=== PATIENT | female | born 1940 | race Two or more races ===

== ENCOUNTER 2024-03-23 11:41 | Inpatient (IN) | payer OTHER ==
[~2024-03-23] VITALS: Ht 165.1 cm; Wt 59.7 kg
--- NOTE | 2024-03-23 12:03 | ECG ---
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
--- NOTE | 2024-03-23 12:40 | ED.PDOC ---
History of Present Illness HPI Comments 83F presents to the ER w/ no prior Hx associated to the c/c of ABN labs. Pt reports on pulling a muscle on her neck last week at [facility] and woke up this morning at 0200 w/ neck pain. Pt stated that she checked her BP due from having palpitations and it was 188/117. She stated that she went to [facility] and that the physician said her labs are not good and that she needs to go to the ER and to have a lung scan. PMHx of High Lipids, and HTN. Denies chills, fever, N/V/D, SOB, or other associated symptoms, modifiers, or recent injuries at this time. Chief Complaint: Abnormal LAB's Time Seen by MD: 12:20 Primary Care Provider: justo Reviewed Notes: Nurses Notes, Medications, Allergies Information Source: Patient Mode of Arrival: Ambulatory Severity: Moderate Timing: Hours Duration: Since onset, Hours Prehospital treatment: None Past Medical History PAST MEDICAL HISTORY: High Lipids, HTN Surgical History: Denies all surgeries BELLOWS TESTER History: No Pertinent BELLOWS TESTER History Family History Family History: Reviewed,noncontributory to illness, Unknown Social History Smoker: Non-Smoker Alcohol: Denies ETOH Use Drugs: Denies Drug Use Lives In: Home Constitutional: denies: chills, diaphoresis, fatigue, fever, malaise, sweats, weakness, others EENTM: denies: blurred vision, double vision, ear bleeding, ear discharge, ear drainage, ear pain, ear ringing, eye pain, eye redness, hearing loss, mouth pain, mouth swelling, nasal discharge, nose bleeding, nose congestion, nose pain, photophobia, tearing, throat pain, throat swelling, voice changes, others Respiratory: denies: cough, hemoptysis, orthopnea, SOB at rest, shortness of breath, SOB with excertion, stridor, wheezing, others Cardiovascular: reports: palpitations; denies: chest pain, dizzy spells, diaphoresis, Dyspnea on exertion, edema, irregular heart beat, left arm pain, lightheadedness, PND, syncope, others Gastrointestinal: denies: abdomen distended, abdominal pain, blood streaked bowels, constipated, diarrhea, dysphagia, difficulty swallowing, hematemesis, melena, nausea, poor appetite, poor fluid intake, rectal bleeding, rectal pain, vomiting, others Genitourinary: denies: abnormal vagina bleeding, burning, dyspareunia, dysuria, flank pain, frequency, hematuria, incontinence, pain, , vagina discharge, urgency, others Neurological: denies: dizziness, fainting, headache, left sided numbness, left sided weakness, numbness, paresthesia, pre-existing deficit, right sided numbness, right sided weakness, seizure, speech problems, tingling, tremors, weakness, others Musculoskeletal: reports: neck pain; denies: back pain, gout, joint pain, joint swelling, muscle pain, muscle stiffness, others Integumetry: denies: bruises, change in color, change in hair/nails, dryness, laceration, lesions, lumps, rash, wounds, others Allergic/Immunocompromised: denies: Difficulty Healing, Frequent Infections, Hives, Itching, others Hematologic/Lymphatic: denies: anemia, blood clots, easy bleeding, easy bruising, swollen glands, others Endocrine: denies: excessive hunger, excessive sweating, excessive thirst, excessive urination, flushing, intolerance to cold, intolerance to heat, un explained weight gain, unexplained weight loss, others Psychiatric: denies: anxiety, bipolar disorder, depression, hopeless, panic disorder, schizophrenia, sleepless, suicidal, others All Other Systems: Reviewed and Negative Physical Exam General Appearance: Moderate Distress, Normal HEENT: Normal ENT Inspection, Pharynx Normal, TMs Normal Neck: Full Range of Motion, Non-Tender, Normal, Normal Inspection Respiratory: Chest Non-Tender, Lungs Clear, No Accessory Muscle Use, No Respiratory Distress, Normal Breath Sounds Cardiovascular: No Edema, No JVD, No Murmur, No Gallop, Normal Peripheral Pulse s, Regular Rate/Rhythm Breast Exam: Deferred Gastrointestinal: No Organomegaly, Non Tender, No Pulsatile Mass, Normal Bowel Sounds, Soft Genitalia: Deferred Pelvic: Deferred Rectal: Deferred Extremities: No calf tenderness, Normal capillary refill, Normal inspection, Normal range of motion, Non-tender, No pedal edema Musculoskeletal : Apperance: Normal Neurologic: Alert, desk attendant II-XII nml as Tested, No Motor Deficits, Normal Affect, Normal Mood, No Sensory Deficits Cerebellar Function: Normal Reflexes: Normal Skin: Dry, Normal Color, Warm Peripheral Pulses: 3+ Radial (R), 3+ Radial (L) Lymphatic: No Adenopathy Was a procedure done? Was a procedure done?: No Differential Dx Considerations may include: Anemia Electrolyte imbalance X-Ray, Labs, Meds, VS Vital Signs Date Time Temp Pulse Resp B/P (MAP) Pulse Ox O2 Delivery O2 Flow Rate FiO2 03/23/24 13:25 107 16 98 Room Air* 0 21 03/23/24 13:24 98.2 107 18 176/117 (136) 98 98.2 03/23/24 13:24 176/117 03/23/24 11:55 110 03/23/24 11:54 98.0 122 17 161/110 (127) 97 Lab Test 03/23/24 13:21 Range/Units White Blood Count 4.8 4.4-10.8 10^3/uL Red Blood Count 4.55 4.0-5.20 10^6/uL Hemoglobin 11.6 L 12.2-16.2 g/dL Hematocrit 35.8 L 36.0-46.0 % Mean Corpuscular Volume 78.6 L 80.0-100.0 fL Mean Corpuscular Hemoglobin 25.5 L 28.0-32.0 pg Mean Corpuscular Hemoglobin Concent 32.5 32.0-36.0 g/dL Red Cell Distribution Width 15.5 H 11.8-14.3 % Platelet Count 276 140-450 10^3/uL Mean Platelet Volume 8.6 6.9-10.8 fL Neutrophils (%) (Auto) 65.9 37.0-80.0 % Lymphocytes (%) (Auto) 21.4 10.0-50.0 % Monocytes (%) (Auto) 6.5 0.0-12.0 % Eosinophils (%) (Auto) 1.4 0.0-7.0 % Basophils (%) (Auto) 4.8 H 0.0-2.0 % Neutrophils # (Auto) 3.2 1.6-8.6 10 ^3/uL Lymphocytes # (Auto) 1.0 0.4-5.4 10 ^3/uL Monocytes # (Auto) 0.3 0-1.3 10 ^3/uL Eosinophils # (Auto) 0.1 0-0.8 10 ^3/uL Basophils # (Auto) 0.2 0-0.2 10 ^3/uL Nucleated Red Blood Cells 0.1 % D-Dimer, Quantitative 1.16 H 0.0-0.49 mg/L FEU Sodium Level 140 136-145 mmol/L Potassium Level 3.8 3.5-5.1 mmol/L Chloride Level 105 98-107 mmol/L Carbon Dioxide Level 27 20-31 mmol/L Anion Gap 8 5-15 Blood Urea Nitrogen 17 9-23 mg/dL Creatinine 1.37 H 0.550-1.02 mg/dL Glomerular Filtration Rate Calc 39 >90 mL/min BUN/Creatinine Ratio 12.4 10.0-20.0 Serum Glucose 101 74-106 mg/dL Calcium Level 10.6 H 8.7-10.4 mg/dL Troponin I High Sensitivity 10 </=34 ng/L Current Medications Medications (Trade) Dose Ordered Sig/Luna Route Start Time Stop Time Status Last Admin Amlodipine Besylate (Norvasc Tablet) 10 mg ONCE ONCE PO 03/23/24 13:00 03/23/24 13:01 DC 03/23/24 13:24 Acetaminophen/ Hydrocodone Bitart ([place] 5/325MG Tab) 1 tab ONCE ONCE PO 03/23/24 13:30 03/23/24 13:31 DC 03/23/24 13:28 Patient alert. She is anxious. Vitals stable. Blood pressure elevated. Saturation pristine on room air. Tachycardia. Ultrasound ordered. CT of the chest was not ordered till the labs. No leg swelling. Possibly musculoskeletal. Explained to the patient. Continue cardiac monitoring. [facility] approved inpatient admission [id number]. Time of 1ST Reevaluation: 12:50 Reevaluation 1ST: Unchanged Patient Education/Counseling: Diagnosis, Treatment, Prognosis Family Education/Counseling: No Family Present Departure 1 Departure Time of Disposition: 12:50 Impression: Primary Impression: Hypertensive emergency Disposition: 09 ADMITTED INPATIENT Admit to: Med Surg Condition: Guarded Critical Care Note Critical Care Time?: Yes (45 min-critical care time only) Stability Stability form required: No Heart Score Heart Score: Heart Score Response (Comments) Value History Slightly Suspicious 0 EKG Normal 0 Age >65 2 Risk Factors >3 or Hx ASHD 2 Troponin N/A 0 Total 4 I personally scribed for KARINA MILLER MD ([email or web address]) on 03/23/24 at 12:40. Electronically submitted by Christofer Watts ([email or web address]). KARINA MILLER MD Mar 23, 2024 12:40
[2024-03-23] MEDS: amLODIPine BESYLATE 5 MG TAB PO ONE (13:24)
[2024-03-23 13:25] VITALS: PULSE 107; RESP 16; O2SAT 98
[2024-03-23] MEDS: HYDROcodone-ACET 5/325MG TAB PO ONE (13:28)
--- NOTE | 2024-03-23 13:29 | DVH ---
EXAM: US BILAT LOWER DVT Clinical History: dvt Comparison: None Technique: Duplex Doppler evaluation of the deep venous systems of both lower extremities from the common femora l veins to the popliteal veins including color Doppler and spectral/pulsed waveform analysis was perf ormed. Findings: No visible intraluminal venous thrombus. No evidence of incompressibility or abnormal color or spectr al Doppler flow visualized in the deep bilateral lower extremity veins. Proximal greater saphenous ve ins are grossly unremarkable. Impression: 1. No sonographic evidence of deep venous thrombosis throughout the bilateral lower extremities from the popliteal veins to the common femoral veins.
[2024-03-23 13:39] LABS: Basophils # (auto) 0.2 10 ^3/uL (0-0.2); Basophils % (auto) 4.8 % (0.0-2.0); Eosinophils # (auto) 0.1 10 ^3/uL (0-0.8); Eosinophils % (auto) 1.4 % (0.0-7.0); Hematocrit 35.8 % (36.0-46.0); Hemoglobin 11.6 g/dL (12.2-16.2); Lymphocytes % (auto) 21.4 % (10.0-50.0); Mean Corpuscular Hemoglobin 25.5 pg (28.0-32.0); Mean Corpuscular Hgb Conc. 32.5 g/dL (32.0-36.0); Mean Corpuscular Volume 78.6 fL (80.0-100.0); Monocytes # (auto) 0.3 10 ^3/uL (0-1.3); Monocytes % (auto) 6.5 % (0.0-12.0); Neutrophils # (auto) 3.2 10 ^3/uL (1.6-8.6); Neutrophils % (auto) 65.9 % (37.0-80.0); Nucleated Red Blood Cells % 0.1 %; Platelet Count (auto) 276 10^3/uL (140-450); Red Blood Cells 4.55 10^6/uL (4.0-5.20); Red Cell Distribution Width 15.5 % (11.8-14.3); White Blood Cell 4.8 10^3/uL (4.4-10.8)
[2024-03-23 13:47] LABS: Chloride 105 mmol/L (98-107); Potassium 3.8 mmol/L (3.5-5.1); Sodium 140 mmol/L (136-145)
[2024-03-23 13:48] LABS: Anion Gap 8 (5-15); Carbon Dioxide 27 mmol/L (20-31)
[2024-03-23 13:53] LABS: Glucose 101 mg/dL (74-106)
[2024-03-23 13:54] LABS: BUN/Creatinine Ratio 12.4 (10.0-20.0); Blood Urea Nitrogen 17 mg/dL (9-23)
[2024-03-23 13:55] LABS: Calcium 10.6 mg/dL (8.7-10.4)
[2024-03-23] MEDS ORDERED: ACETAMINOPHEN 325 MG TAB PO PRN (14:45)
[2024-03-23] MEDS ORDERED: ONDANSETRON HCL 4 MG/2 ML VIAL IV PRN (14:45)
--- NOTE | 2024-03-23 15:09 | DVHHP2 ---
History of Present Illness Reason for Visit: Abnormal labs History of Present Illness This 83-year-old female presents in the ED with a chief complaint of abnormal labs. The patient reports last week she started having neck and mid back pain radiating to abdomen described as "sharp pain" leading her to go to [place]. The patient states that the physician and [facility] told her to go to ER due to abnormal labs and to get a lung scan. In the emergency department, the patient BP noted to be elevated. D-dimer slightly elevated. The patient states that she takes metoprolol succinate 50 b.i.d., Lipitor 20, and aspirin 81. She denies headaches, dizziness, syncope, chest pain, shortness of breath, or other acute symptoms. Past medical history of hypertension and hyperlipidemia Past Medical History As stated in HPI Past Surgical History Hysterectomy Family History Reviewed, non-contributory to the management of this case. Past Social History The patient lives at home, denies smoking, alcohol or illicit drugs abuse. Review of Systems Constitutional: Yes: Malaise; No: Fever, Chills, Sweats, Weakness, Other Eyes: No: Pain, Vision change, Conjunctivae inflammation, Eyelid inflammation, Other, Redness ENT: No: Ear pain, Ear discharge, Nose pain, Nose discharge, Nose congestion, Mouth pain, Mouth swelling, Throat pain, Throat swelling, Other Respiratory: No: Cough, Dry, Shortness of breath, SOB with excertion, Wheezing, Hemoptysis, Pleuritic Pain, Sputum, Wheezing, Other Cardiovascular: No: Chest Pain, Palpitations, Orthopnea, Paroxysmal Noc. Dyspnea, Edema, Lt Headedness, Other Gastrointestinal: Abdominal Pain; No: Nausea, Vomiting, Diarrhea, Constipation, Melena, Hematochezia, Other Genitourinary: No Dysuria, No Frequency, No Incontinence, No Hematuria, No Retention, No Other Musculoskeletal: neck pain, back pain; No: other, shoulder pain, arm pain, hand pain, leg pain, foot pain Skin: No: Rash, Lesions, Jaundice, Bruising, Other Neurological: No: Weakness, Numbness, Incoordination, Change in speech, Confusion, Seizures, Other Allergies: Coded Allergies: NO KNOWN ALLERGIES (Unverified , 03/23/24) Exam Vital Signs Vital Signs Date Time Temp Pulse Resp B/P (MAP) Pulse Ox O2 Delivery O2 Flow Rate FiO2 03/23/24 13:25 107 16 98 Room Air* 0 21 03/23/24 13:24 98.2 176/117 (136) 98.2 General Appearance: Alert, Oriented X3, Cooperative, mild distress HEENT: Atraumatic, PERRLA, EOMI, Mucous membr. moist/pink Respiratory: Clear to auscultation, Normal air movement Cardiovascular: Regular rate, Normal S1, Normal S2 Abdominal: Normal bowel sounds, Soft Extremities: No clubbing, No cyanosis, Normal pulses, No tenderness/swelling Skin: No rashes, No breakdown, No significant lesion Neuro: Normal gait, Normal speech, Strength at 5/5 X4 ext Psych/Mental Status: Mental status NL Labs/Xrays Labs Test 03/23/24 13:21 Range/Units White Blood Count 4.8 4.4-10.8 10^3/uL Red Blood Count 4.55 4.0-5.20 10^6/uL Hemoglobin 11.6 L 12.2-16.2 g/dL Hematocrit 35.8 L 36.0-46.0 % Mean Corpuscular Volume 78.6 L 80.0-100.0 fL Mean Corpuscular Hemoglobin 25.5 L 28.0-32.0 pg Mean Corpuscular Hemoglobin Concent 32.5 32.0-36.0 g/dL Red Cell Distribution Width 15.5 H 11.8-14.3 % Platelet Count 276 140-450 10^3/uL Mean Platelet Volume 8.6 6.9-10.8 fL Neutrophils (%) (Auto) 65.9 37.0-80.0 % Lymphocytes (%) (Auto) 21.4 10.0-50.0 % Monocytes (%) (Auto) 6.5 0.0-12.0 % Eosinophils (%) (Auto) 1.4 0.0-7.0 % Basophils (%) (Auto) 4.8 H 0.0-2.0 % Neutrophils # (Auto) 3.2 1.6-8.6 10 ^3/uL Lymphocytes # (Auto) 1.0 0.4-5.4 10 ^3/uL Monocytes # (Auto) 0.3 0-1.3 10 ^3/uL Eosinophils # (Auto) 0.1 0-0.8 10 ^3/uL Basophils # (Auto) 0.2 0-0.2 10 ^3/uL Nucleated Red Blood Cells 0.1 % D-Dimer, Quantitative 1.16 H 0.0-0.49 mg/L FEU Sodium Level 140 136-145 mmol/L Potassium Level 3.8 3.5-5.1 mmol/L Chloride Level 105 98-107 mmol/L Carbon Dioxide Level 27 20-31 mmol/L Anion Gap 8 5-15 Blood Urea Nitrogen 17 9-23 mg/dL Creatinine 1.37 H 0.550-1.02 mg/dL Glomerular Filtration Rate Calc 39 >90 mL/min BUN/Creatinine Ratio 12.4 10.0-20.0 Serum Glucose 101 74-106 mg/dL Calcium Level 10.6 H 8.7-10.4 mg/dL Troponin I High Sensitivity 10 </=34 ng/L PROCEDURE(s): BLDVT - BiLat Lower DVT REASON: dvt ORDER NUMBER(s): [id number], ACCESSION NUMBER(s): [id number] EXAM: US BILAT LOWER DVT Clinical History: dvt Comparison: None Technique: Duplex Doppler evaluation of the deep venous systems of both lower extremities from the common femoral veins to the popliteal veins including color Doppler and spectral/pulsed waveform analysis was performed. Findings: No visible intraluminal venous thrombus. No evidence of incompressibility or abnormal color or spectral Doppler flow visualized in the deep bilateral lower extremity veins. Proximal greater saphenous veins are grossly unremarkable. Impression: 1. No sonographic evidence of deep venous thrombosis throughout the bilateral lower extremities from the popliteal veins to the common femoral veins. Assessment/Plan Assessment/Plan #Accelerated hypertension Admit to telemetry unit Started on amlodipine Continue metoprolol Hydralazine as needed Echo Monitor BP # rule out pulmonary embolism # elevated D-dimer # DVT, ruled out CTA pending Check CT abd angio # acute cervical and upper back pain C-spine and thoracic x-ray Pain control # UTI Ceftriaxone Urine culture # DAMARIS on CKD 3B IVF # hyperlipidemia Continue statins Check lipid panel, tsh DVT prophylaxis Medical plan discussed with patient and RN Plan discussed with: Patient My Orders Orders - TAMAR AGUIRRE MACHINE I ENGRAVER Procedure Category Date Status Time Ct Angio Chest CT 03/23/24 Verified Contrast 14:33 1/2 Ns PHA 03/23/24 Verified 14:45 Hydralazine Injection PHA 03/23/24 Verified (Apresoline Inject 14:45 Hydralazine Injection PHA 03/23/24 Verified (Apresoline Inject 14:45 Cervical Spine 3v XY 03/23/24 Verified 14:33 Spine Thoracic 2view XY 03/23/24 Verified 14:33 Amlodipine Tablet PHA 03/24/24 Verified (Norvasc Tablet) 10:00 Metoprolol Tartrate PHA 03/23/24 Verified Tablet (Lopressor Ta 22:00 Metoprolol Tartrate PHA 03/23/24 Verified Tablet (Lopressor Ta 14:45 Atorvastatin (Lipitor) PHA 03/23/24 Verified 22:00 Echo 2d Mode Cardiac US 03/23/24 Verified DOP 14:33 Admit ADMIT 03/23/24 Verified 14:33 Code Status CODE 03/23/24 Verified 14:33 Hydrocodone-Acet PHA 03/23/24 Verified 5/325mg Tab ([place] 14:45 Ondansetron Hcl PHA 03/23/24 Verified (Zofran) 14:45 Fall Risk Precautions GAURAV 03/23/[address] 14:33 Complete Blood Count LAB 03/24/24 Verified 04:00 Comprehensive LAB 03/24/24 Verified Metabolic Panel 04:00 Cardiac DIET 03/23/24 Verified Diet-2gna,Lofat,Lochol Dinner Condition: Fair GAURAV 03/23/24 Verified 14:33 Acetaminophen Tablet PHA 03/23/24 Verified (Tylenol Tablet) 14:45 Morphine Sulfate PHA 03/23/24 Verified Injection 14:45 Date of Service: Mar 23, 2024 Billing Provider: TAMAR AGUIRRE Common Visit Codes: [id number] INP/OBS CARE (HIGH) TAMAR AGUIRRE Mar 23, 2024 15:09
[2024-03-23 15:37] LABS: Urine Amorphous Crystal FEW /hpf (None Seen); Urine Bacteria FEW /hpf (None Seen); Urine Blood Negative /uL (Negative); Urine Clarity Turbid (Clear); Urine Color Light-Yellow (Yellow); Urine Mucus FEW (None Seen); Urine Protein, UAD 1+ (Negative); Urine Specific Gravity 1.017 (1.001-1.035); Urine Urobilinogen Normal (Negative); Urine WBC 20 /hpf (0 - 5)
[2024-03-23] MEDS: IOHEXOL 350 MG/ML 100ML IJ ONE (15:44)
[2024-03-23 15:57] LABS: Triglycerides 83 mg/dL (< 150)
[2024-03-23 15:58] LABS: LDL Cholesterol 70 mg/dL (< 100)
[2024-03-23 15:59] LABS: Cholesterol 157 mg/dL (< 200)
[2024-03-23 16:16] LABS: HDL Cholesterol 66 mg/dL (40-59)
--- NOTE | 2024-03-23 16:46 | DVH ---
INDICATION: back pain TECHNIQUE: 4 views of the thoracic spine were obtained. COMPARISON: None FINDINGS: There is no evidence of acute fracture, subluxation and/or dislocation. Diffuse osteopenia. Chronic appearing [id number] compression deformities of the upper midthorac ic spine. The alignment is anatomical. The paravertebral soft tissues were unremarkable. IMPRESSION: 1. Of the visualized spine, there is no evidence for fracture or subluxation.
--- NOTE | 2024-03-23 16:46 | DVH ---
INDICATION: neck pain TECHNIQUE: 3 views of the cervical spine were obtained. COMPARISON: None FINDINGS: Diffuse osteopenia. The cervical spine is visualized from C1-C7. There is loss of the normal cervical lordosis which can be positional. No fractures or subluxations are identified. Multilevel degenerative changes of the spine. Alignment appears unremarkable. Prevertebral soft tissues are within normal limits. IMPRESSION: 1. No evidence for fracture or subluxation.
--- NOTE | 2024-03-23 17:00 | DVH ---
CT CT CHEST/AB/PL W CON- IV ONLY HISTORY: elevated ddimer, aaa Comparison Study: None TECHNIQUE: Multidetector CT of the chest, abdomen and pelvis was performed from lower neck to pubic s ymphysis with the use of intravenous contrast. Axial, coronal and sagittal multiplanar reformats were performed by the technologist on a separate workstation. Radiation Dose : CTDI vol 12.06 mGy, DLP 860.09 mGy*cm. Findings: Chest: Lungs: Biapical scarring. Centrilobular emphysematous changes. Pleura: Unremarkable Heart/Great vessels: Cardiomegaly. No pericardial effusion. No pulmonary embolism, aneurysm, or disse ction. Mediastinum: Unremarkable Soft tissues/Bones: Mild degenerative changes of the thoracic spine. Abdomen: Liver: Subcentimeter hypodense hepatic lesions which are too small to characterize. Gallbladder: Unremarkable. Spleen: Unremarkable Pancreas: Dilated main pancreatic duct. Adrenals: Unremarkable Kidneys: Unremarkable GI tract: Unremarkable : Unremarkable. Vasculature: Mild aortoiliac atherosclerosis. No aneurysm or dissection. Lymphadenopathy: Absent Peritoneum: No ascites Musculoskeletal: Mild multilevel degenerative changes of the lumbar spine. Bilateral total hip arthro plasties obscure the pelvis due to beam hardening artifact. Soft tissues: Unremarkable Impression: Chest: 1. No pulmonary embolism, aneurysm or dissection. 2. Centrilobular emphysematous changes. 3. Cardiomegaly. Abdomen: 1. No acute abdominopelvic abnormalities or abdominal aortic aneursym. 2. Dilated main pancreatic duct. Consider further evaluation with contrast enhanced abdominal MRI as indicated.
[2024-03-23] MEDS: METOPROLOL TARTRATE 50 MG TAB PO ONE (17:58)
[2024-03-23] MEDS: hydrALAZINE HCL 20 MG/ML VL IV ONE (17:59)
[2024-03-23] MEDS: ASPirin 81 mg TAB PO ONE (17:59)
[2024-03-23] MEDS: cefTRIAXone 1GM/50ML D5W 50 ML IV ONE (17:59)
[2024-03-23] MEDS: SOD CHL 0.45% 1,000 ML IV SCH (18:04)
[2024-03-23] MEDS: ATORVASTATIN 20 MG TAB PO SCH (21:49)
[2024-03-23] MEDS: METOPROLOL TARTRATE 50 MG TAB PO SCH (21:50)
[2024-03-23 22:00] VITALS: BP 160/96; PULSE 78; RESP 18; TEMP 97.4; O2SAT 98
[2024-03-23 22:29] VITALS: BP 160/96; PULSE 78; RESP 18; TEMP 97.4; O2SAT 98
[2024-03-23] MEDS: hydrALAZINE HCL 20 MG/ML VL IV PRN (23:57)
[2024-03-24] VITALS (7 sets, daily range): BP systolic 138–183; BP diastolic 54–103; PULSE 80–98; RESP 16–17; TEMP 97.8–98.3; O2SAT 95–97
[2024-03-24] MEDS ORDERED: METO-158 PO (00:12)
[2024-03-24] MEDS ORDERED: ATOR20TA PO (00:12)
[2024-03-24] MEDS ORDERED: ASPI-543 PO (00:12)
[2024-03-24 07:21] LABS: Basophils # (auto) 0.1 10 ^3/uL (0-0.2); Eosinophils # (auto) 0.2 10 ^3/uL (0-0.8); Hematocrit 34.2 % (36.0-46.0); Hemoglobin 11.2 g/dL (12.2-16.2); Monocytes # (auto) 0.8 10 ^3/uL (0-1.3); Neutrophils # (auto) 4.1 10 ^3/uL (1.6-8.6); Nucleated Red Blood Cells % 0.1 %; Red Cell Distribution Width 15.5 % (11.8-14.3)
[2024-03-24 07:25] LABS: Basophils % (auto) 0.9 % (0.0-2.0); Eosinophils % (auto) 3.1 % (0.0-7.0); Lymphocytes # (auto) 1.8 10 ^3/uL (0.4-5.4); Mean Corpuscular Hemoglobin 25.7 pg (28.0-32.0); Mean Corpuscular Hgb Conc. 32.8 g/dL (32.0-36.0); Mean Corpuscular Volume 78.3 fL (80.0-100.0); Platelet Count (auto) 278 10^3/uL (140-450); Red Blood Cells 4.37 10^6/uL (4.0-5.20)
[2024-03-24 07:31] LABS: Alkaline Phosphatase 88 U/L (46-116); Anion Gap 6 (5-15); BUN/Creatinine Ratio 15.3 (10.0-20.0); Blood Urea Nitrogen 19 mg/dL (9-23); Calcium 10.3 mg/dL (8.7-10.4); Carbon Dioxide 26 mmol/L (20-31); Chloride 105 mmol/L (98-107); Glucose 95 mg/dL (74-106); Potassium 3.8 mmol/L (3.5-5.1); Sodium 137 mmol/L (136-145)
[2024-03-24 07:32] LABS: Albumin 4.1 g/dL (3.2-4.8); Aspartate Aminotransferase 14 U/L (13-40); Total Protein 6.9 g/dL (5.7-8.2)
[2024-03-24 07:33] LABS: Bilirubin, Total 0.5 mg/dL (0.2-1.0)
[2024-03-24 07:46] LABS: Alanine Aminotransferase 9 U/L (7-40)
[2024-03-24] MEDS: MORPHINE SULFATE INJ 2 MG/ml SYRG IV PRN (08:14)
[2024-03-24] MEDS: ENOXAPARIN SOD 30 MG/0.3 ML SYRINGE SC SCH (08:16)
[2024-03-24] MEDS: ASPirin 81 mg TAB PO SCH (08:16)
[2024-03-24] MEDS: amLODIPine BESYLATE 5 MG TAB PO SCH (08:17)
[2024-03-24] MEDS: cefTRIAXone 1GM/50ML D5W 50 ML IV SCH (08:18)
[2024-03-24] MEDS: LORazepam 2MG/ML-1ML VIAL IV ONE (12:30)
--- NOTE | 2024-03-24 12:35 | DVHPN2 ---
Progress Note Date Seen: Mar 24, 2024 Medical Necessity Reason Pt with a Central, PICC or Fol: No Subjective Patient reports: No new complaints Review of Systems: HEENT:Normal, CVS:Normal, RESPIRATORY:Normal, GI:Normal, :Normal, MSK:Normal, NEURO:Normal Objective vital signs Vital Sign Date Time Temp Pulse Resp B/P (MAP) Pulse Ox O2 Delivery O2 Flow Rate FiO2 03/24/24 10:51 169/89 03/24/24 09:17 80 03/24/24 09:00 97.9 17 95 97.9 03/24/24 08:00 Room Air* 0 21 Total Intake and Output 03/23/24 03/23/24 03/24/24 15:00 23:00 07:00 Intake Total 50 ml Balance 50 ml medications Current Medications Medications Dose Ordered Sig/Luna Route Start Time Stop Time Status Last Admin Dose Admin Hydralazine HCl 10 mg Q6HP PRN IV 03/23/24 14:45 03/24/24 10:51 10 MG Amlodipine Besylate 10 mg DAILY PO 03/24/24 10:00 03/24/24 08:17 10 MG Metoprolol Tartrate 50 mg BID PO 03/23/24 22:00 03/24/24 08:17 50 MG Atorvastatin Calcium 20 mg HS PO 03/23/24 22:00 03/23/24 21:49 20 MG Acetaminophen/ Hydrocodone Bitart 1 tab Q4HP PRN PO 03/23/24 14:45 Ondansetron HCl 4 mg Q4HP PRN IV 03/23/24 14:45 Acetaminophen 650 mg Q6HP PRN PO 03/23/24 14:45 Morphine Sulfate 2 mg Q4HPRN PRN IV 03/23/24 14:45 03/24/24 08:14 2 MG Ceftriaxone Sodium 50 ml @ 100 mls/hr DAILY@09 IV 03/24/24 09:00 03/24/24 08:18 100 MLS/HR Enoxaparin Sodium 30 mg DAILY SC 03/24/24 10:00 03/24/24 08:16 30 MG Aspirin 81 mg DAILY PO 03/24/24 10:00 03/24/24 08:16 81 MG Examination: GENERAL:Normal, HEENT:Normal, NECK:Normal, LUNGS:Normal, CVS:Normal, ABDOMEN:Normal, MSK:Normal, SKIN:Normal, NEURO:Normal, :Normal laboratory and microbiology Laboratory Tests 03/24/24 06:01 Test 03/24/24 06:01 Range/Units Serum Glucose 95 74-106 mg/dL Problem List/Assessment/Plan Problem List/Assessment/Plan #1 severe abd pain / cbd dilatation: mrcp #2 hypertensive urgency: adjust meds #3 ckd stage 3 #4 hyperlipidemia unstable for transfer advance care planning- full code- time spent 19 mins Plan discussed with: Patient My Orders My Orders Orders - DOMONIQUE ZAYAS MD Procedure Category Date Status Time Mrcp Mri MRI 03/24/24 Verified 12:24 Lorazepam 2mg/Ml Inj PHA 03/24/24 Verified (Ativan Inj) 12:30 Basic Metabolic Panel LAB 03/25/24 Verified 06:00 Complete Blood Count LAB 03/25/24 Verified 06:00 Date of Service: Mar 24, 2024 Billing Provider: DOMONIQUE ZAYAS MD Common Visit Codes: [id number] INP/OBS CARE(HIGH) Secondary Visit Codes: [id number] CARE PLAN 30 MINUTES DOMONIQUE ZAYAS MD Mar 24, 2024 12:35
--- NOTE | 2024-03-24 13:34 | DVH ---
[id number] MRI MRCP MRI Attending Name: HUSSEIN ZAYAS COMPARISON: CT done 03/23/2024 INDICATION: pancreatic duct dilatation TECHNIQUE: MRCP was performed without the use of intravenous contrast using a MRI imaging system. Three-dimensional MRCP was performed using maximum intensity projection reconstruction on an [facility] [employer] workstation under concurrent supervision. FINDINGS: Visualized lower thorax: Limited imaging of the thorax demonstrates no suspicious pleural or parenchy mal disease. Liver: Normal in morphology and signal intensity. Gallbladder: No evidence of cholelithiasis or gallbladder wall thickening. Biliary system: There is no intrahepatic or extrahepatic bile duct dilatation. No filling defect to s uggest choledocholithiasis. Common bile duct 5-6 mm in size Spleen: Normal in morphology and signal intensity. Pancreas: Normal in morphology and signal intensity. Slight dilatation of the pancreatic duct measuri ng 4-5 mm in size Adrenal glands: Normal in morphology and signal intensity. Kidneys: The kidneys are symmetric in size and appearance. No hydronephrosis. Urinary tract: The included ureters, as visualized, are normal in course and caliber. GI tract: The included portions of the bowel are within normal limits. Lymph nodes: No enlarged lymph nodes. Peritoneum: No ascites. Musculoskeletal: The bone marrow signal intensity is within normal limits. IMPRESSION: 1. As on prior CT there is slight dilatation of the pancreatic duct without apparent cause. The common bile duct is normal in size without evidence of obstruction. There are no gallstones
--- NOTE | 2024-03-24 15:00 | DVHSR ---
APPROVED REPORT EXAM: Two-dimensional and M-mode echocardiogram with Doppler and color Doppler. Blood Pressure: 140/77 mmHg INDICATION Accelerated hypertension RISK FACTORS Height: 65, Weight: 132 DIMENSIONS LVDd4.0 (3.8-5.7cm)LA (2D)3.8 (1.9-4.0cm)Aortic Root3.1 (2.0-3.7cm) LVDs2.7 (2.5-4.0cm)LA (MM) (1.9-4.0cm)Aortic Cusp Exc1.4 (1.5-2.0cm) EF (%) 61.0 (55-70%)Rt. Atrium4.2 (1.9-4.0cm)Asc. Aorta cm Mitral Valve MitralMitral Stenosis E wave0.85m/sMV Mean GR.mmHg A wave1.22m/sMV Peak GR.108mmHg E/A ratio0.72D MVAcm2 DECEL [id number] 1/2 Xujz12ta IVRTmsDop MVA3.08cm2 Aortic Valve Aortic ValveAortic Stenosis V11.38m/Gianluca Mean GR.8mmHg V22.05m/Gianluca Peak GR.17mmHg LVOT Diameter2.1 (1.8-2.4cm)Doppler AVA2.33cm2 Pulmonic Valve V20.79m/s Tricuspid Valve TR Velocity2.71m/s [id number] Conclusion Normal left ventricular size and dimension. Normal left ventricular systolic function estimated ejec tion fraction 55%. There is a grade 1 diastolic dysfunction. Normal left ventricular size and dimension. Normal right ventricular systolic function. Slightly in creased right ventricular systolic [id number] mm of mercury. Normal biatrial size and dimension. Normal aortic valve structure and function. There is mild aortic valve sclerosis Normal mitral valve structure and function. Normal Tricuspid valve structure and function. The pulmonary valve is grossly. No Pericardial effusion.
[2024-03-25 05:00] VITALS: BP 163/84; PULSE 68; RESP 17; TEMP 97.3; O2SAT 92
[2024-03-25 07:32] LABS: Basophils # (auto) 0 10 ^3/uL (0-0.2); Eosinophils # (auto) 0.2 10 ^3/uL (0-0.8); Hematocrit 32.2 % (36.0-46.0); Hemoglobin 10.7 g/dL (12.2-16.2); Lymphocytes # (auto) 1.2 10 ^3/uL (0.4-5.4); Mean Corpuscular Hgb Conc. 33.4 g/dL (32.0-36.0); Monocytes # (auto) 0.5 10 ^3/uL (0-1.3); Neutrophils % (auto) 56.8 % (37.0-80.0); Nucleated Red Blood Cells % 0.1 %
[2024-03-25 07:37] LABS: Eosinophils % (auto) 4.7 % (0.0-7.0); Lymphocytes % (auto) 25.8 % (10.0-50.0); Mean Corpuscular Hemoglobin 26.1 pg (28.0-32.0); Mean Corpuscular Volume 78.2 fL (80.0-100.0); Monocytes % (auto) 11.7 % (0.0-12.0); Neutrophils # (auto) 2.6 10 ^3/uL (1.6-8.6); Platelet Count (auto) 253 10^3/uL (140-450); Red Blood Cells 4.11 10^6/uL (4.0-5.20); Red Cell Distribution Width 15.5 % (11.8-14.3); White Blood Cell 4.5 10^3/uL (4.4-10.8)
[2024-03-25 07:52] LABS: Calcium 9.9 mg/dL (8.7-10.4); Chloride 105 mmol/L (98-107); Potassium 3.9 mmol/L (3.5-5.1); Sodium 138 mmol/L (136-145)
[2024-03-25 07:53] LABS: Anion Gap 8 (5-15); Carbon Dioxide 25 mmol/L (20-31)
[2024-03-25 07:59] LABS: BUN/Creatinine Ratio 14.6 (10.0-20.0); Blood Urea Nitrogen 18 mg/dL (9-23); Glucose 82 mg/dL (74-106)
[2024-03-25 08:00] VITALS: PULSE 86; PULSE 95; RESP 18; O2SAT 98
[2024-03-25 09:00] VITALS: BP 150/87; PULSE 93; RESP 16; TEMP 98; O2SAT 95
--- NOTE | 2024-03-25 12:33 | DVHDS2 ---
Discharge Summary Date of Admission Mar 23, 2024 at 14:33 Date of Discharge: Mar 25, 2024 Labs/Diagnostic Data: Laboratory Results Test 03/25/24 06:34 03/24/24 06:01 03/23/24 13:21 03/23/24 12:00 White Blood Count 4.5 10^3/uL (4.4-10.8) Red Blood Count 4.11 10^6/uL (4.0-5.20) Hemoglobin 10.7 g/dL (12.2-16.2) Hematocrit 32.2 % (36.0-46.0) Mean Corpuscular Volume 78.2 fL (80.0-100.0) Mean Corpuscular Hemoglobin 26.1 pg (28.0-32.0) Mean Corpuscular Hemoglobin Concent 33.4 g/dL (32.0-36.0) Red Cell Distribution Width 15.5 % (11.8-14.3) Platelet Count 253 10^3/uL (140-450) Mean Platelet Volume 9.0 fL (6.9-10.8) Neutrophils (%) (Auto) 56.8 % (37.0-80.0) Lymphocytes (%) (Auto) 25.8 % (10.0-50.0) Monocytes (%) (Auto) 11.7 % (0.0-12.0) Eosinophils (%) (Auto) 4.7 % (0.0-7.0) Basophils (%) (Auto) 1.0 % (0.0-2.0) Neutrophils # (Auto) 2.6 10 ^3/uL (1.6-8.6) Lymphocytes # (Auto) 1.2 10 ^3/uL (0.4-5.4) Monocytes # (Auto) 0.5 10 ^3/uL (0-1.3) Eosinophils # (Auto) 0.2 10 ^3/uL (0-0.8) Basophils # (Auto) 0 10 ^3/uL (0-0.2) Nucleated Red Blood Cells 0.1 % Sodium Level 138 mmol/L (136-145) Potassium Level 3.9 mmol/L (3.5-5.1) Chloride Level 105 mmol/L (98-107) Carbon Dioxide Level 25 mmol/L (20-31) Anion Gap 8 (5-15) Blood Urea Nitrogen 18 mg/dL (9-23) Creatinine 1.23 mg/dL (0.550-1.02) Glomerular Filtration Rate Calc 44 mL/min (>90) BUN/Creatinine Ratio 14.6 (10.0-20.0) Serum Glucose 82 mg/dL (74-106) Calcium Level 9.9 mg/dL (8.7-10.4) Total Bilirubin 0.5 mg/dL (0.2-1.0) Aspartate Amino Transferase (AST) 14 U/L (13-40) Alanine Aminotransferase (ALT) 9 U/L (7-40) Alkaline Phosphatase 88 U/L (46-116) Total Protein 6.9 g/dL (5.7-8.2) Albumin 4.1 g/dL (3.2-4.8) D-Dimer, Quantitative 1.16 mg/L FEU (0.0-0.49) Troponin I High Sensitivity 10 ng/L (</=34) Triglycerides Level 83 mg/dL (< 150) Cholesterol Level 157 mg/dL (< 200) LDL Cholesterol 70 mg/dL (< 100) HDL Cholesterol 66 mg/dL (40-59) Thyroid Stimulating Hormone (TSH) 1.46 uIU/mL (0.55-4.78) Urine Color Light-yellow (Yellow) Urine Clarity Turbid (Clear) Urine pH 6.0 (5.0-9.0) Urine Specific [place] 1.017 (1.001-1.035) Urine Protein 1+ (Negative) Urine Ketones Negative (Negative) Urine Blood Negative /uL (Negative) Urine Nitrite Negative (Negative) Urine Bilirubin Negative (Negative) Urine Urobilinogen Normal mg/dL (Negative) Urine Leukocyte Esterase 2+ /uL (Negative) Urine RBC 3 /hpf (0 - 4) Urine WBC 20 /hpf (0 - 5) Urine Squamous Epithelial Cells Few /hpf (<5) Urine Amorphous Crystals Few /hpf (None Seen) Urine Bacteria Few /hpf (None Seen) Urine Mucus Few (None Seen) Urine Glucose Normal mg/dL (Normal) Other Laboratory Tests 03/25/24 06:34 Brief Hx & Hospital Course: see dictated note Condition at Discharge: Fair Final Diagnosis/Problems List htn Discharge Disposition: Home Discharge Instruct/Medications Diet: Cardiac 2g Na,low cholest Activity: No Restrictions, As Tolerated Follow Up/Referral: fu with [facility] Medications: resume home meds script to pharmacy Discharge Statement: "Patient was advised to return to the ER or call 911 if any headaches, dizziness, shortness of breath, chest pain, abdominal pain, bleeding, fevers, or worsening of medical condition. Patient was counseled about treatment plan, medications, possible side effects, patientverbalized understanding. All questions were answered to the best of my ability. This discharge took greater then 30 minutes in planning, reviewing documentation, counseling the patient, and discussing with other team members." ASSESSMENT ASSESSMENT Assessment htn Date of Service: Mar 25, 2024 Billing Provider: DOMONIQUE ZAYAS MD Common Visit Codes: 83855-QQB/OBS DISCH DAY >30min DOMONIQUE ZAYAS MD Mar 25, 2024 12:33
[2024-03-25] MEDS ORDERED: AMLO1TAB23 PO (12:35)
--- NOTE | 2024-03-25 12:53 | DVHDS ---
DATE OF DISCHARGE: 03/25/2024 HISTORY OF PRESENT ILLNESS: The patient is an 83-year-old lady who was admitted with complaints of abdominal and mid back pain and has history of hypertension, hyperlipidemia. HOSPITAL COURSE: The patient had a CT of chest, abdomen and pelvis with IV contrast that showed no pulmonary embolism, but showed some centrilobular emphysema. No aortic aneurysm was seen. She had a dilated main pancreatic duct. She had a MRCP that showed there was dilatation of pancreatic duct without any apparent cause. The patient had a thoracic spine x-ray that was unremarkable for any fracture and she had a cervical spine x-ray that was also negative for any fracture. Doppler of lower extremity was negative for DVT. The patient's blood pressure was elevated at 161/110 at admission that improved to 150/80 at time of discharge. The patient will now be discharged home to resume her home medications as well as to be on amlodipine 10 mg daily. She had echocardiogram that showed ejection fraction of 55%. FINAL DIAGNOSES: Therefore, * Hypertensive urgency. * Abdominal pain, questionably musculoskeletal. * Chronic kidney disease, stage III. * Hyperlipidemia. Time spent in discharge planning and review of plan with the patient and nursing was 37 minutes. MD SUNDAY Coles/JAMES TID: [id number] RECEIPT: [id number]
[2024-03-25 13:00] VITALS: BP 126/88; PULSE 78; RESP 16; TEMP 98.3; O2SAT 95
[2024-03-25] MEDS: HYDROcodone-ACET 5/325MG TAB PO PRN (14:46)
[2024-03-25 16:44] VITALS: BP 102/49; PULSE 79; RESP 16; TEMP 97.6; O2SAT 96
== END 2024-03-25 17:48 | disposition home or self-care (01) | DRG 690 ==
LOC: ER 11:41 → TELE 14:33 → TELE-WESTW 22:00
PROVIDERS: ADMIT Registered Nurse; ATTEND Internal Medicine
DX: N30.00 Acute cystitis without hematuria (principal); I16.1 Hypertensive emergency; E78.5 Hyperlipidemia, unspecified; N18.32 Chronic kidney disease, stage 3b; M54.2 Cervicalgia; I12.9 Hypertensive chronic kidney disease with stage 1 through stage 4 chronic kidney disease, or unspecified chronic kidney disease; K86.89 Other specified diseases of pancreas; J43.2 Centrilobular emphysema; Z90.710 Acquired absence of both cervix and uterus; Z79.899 Other long term (current) drug therapy
CPT/HCPCS: 36415; 71260; 72040; 72070; 74177; 74181; 80048; 80053; 80061; 81001; 84443; 84484; 85025; 85379; 87040; 87086; 93005; 93306; 93970; 96365; 96375; 99291; G0378